=== PATIENT | female | born 1965 | race Caucasian/White ===

== ENCOUNTER → 2019-06-16 08:13 | Day surgery (SDC) | payer BC ==
[~2019-06-16 08:13] MED LIST: Acetaminophen TAB* 325 MG PO PRN; Heparin 2 UNITS/ML IVPREMIX* 2,000 ML IV ONE; Heparin(*) 1000 UNIT/ML 10 ML VIAL CATH LAB IV ONE; Iodixanol 320 (CONTRAST) 100 ML SDV ONE; Lidocaine 1% INJ* 10 MG/ML 30 ML SDV ONE; Midazolam* 1 MG/ML 5 ML VIAL (5 MG) ONE; NS 0.9% 1000 ML** 1,000 ML IV SCH; VERAPAMIL 2.5 MG/ML 2 ML VIAL ** 5 mg/2 ml ONE; fentaNYL* 50 MCG/ML 2 ML VIAL (100 MCG VIAL) ONE; nitroGLYCERIN DRIP* 25,000 MCG/250 ML BTL ONE
[2019-06-16 12:45] VITALS: BP 125/75
--- NOTE | 2019-06-16 12:56 | CATH ---
"*[facility]* [address] [address] Main: [phone] [email or web address] Cardiac Catheterization Patient: Keiry Kerr : 1965 Study Date: 06/16/2019 Age: 53 Gender: F HR: Height: 60 in /152.4 cm BSA: 1.73 m^2 Weight: 150.9 lb /68.6 kg BMI: 29.5 kg/m^2 [employer]acking [employer] Wrapping Supervisor: Cricket Carrillo MD Ordering Physician: Cricket Carrillo MD Referring Physician: Cricket Carrillo MD, Gerardo Johns, --- - Right coronary angiography. - Left coronary angiography. Summary: No critical disease. Normal LVEDP. Recommendations: Contiue maximal medical therapy. Further treatment per Dr. Zuniga. History: Stable angina. Functional status: CCS class II (slight limitation of ordinary activity). Risk factors: Hypertension. Diabetes mellitus; on therapy with oral hypoglycemics. Medications: The patient received antianginal therapy in the last two weeks, including: beta blockers and calcium channel blockers. Labs, prior tests, procedures, and surgery: Blood tests: International normalized ratio (INR) of 1.05. Serum potassium (K) of 4.3 mEq/l. Serum sodium (Na) of 139 mEq/l. Serum creatinine (current admission) of 1.25 mg/dl. Blood urea nitrogen of 28 mg/dl. Glucose of 160 mg/dl. Platelet count of 214 th/ul. White blood cell count (WBC) of 0.01 th/ul. Red blood cell count (RBC) of 4500 th/ul. Hematocrit of 38 %. Hemoglobin (pre-procedure) of 12.8 g/dl. Study data: Study status: Cardiac cath: elective. Location: Catheterization laboratory. Consent: The risks, benefits, and alternatives to the procedure were explained to the patient and/or their healthcare solar manufacturer's representative and written informed consent was obtained. All available pre-procedure labs were reviewed. Height: 152.4 cm. 60 in. Weight: 68.6 kg. 150.9 lb. Body surface area: 1.73 m^2. Body mass index: 29.5 kg/m^2. Procedure: 1. Initial setup. The patient was brought to the laboratory. Surface ECG leads, blood pressure measurements, and pulse oximetric signals were monitored. A baseline seven lead ECG was recorded. A time out was observed per protocol. 2. Skin preparation. The planned puncture sites were prepped and draped in the usual sterile manner. 3. Local anesthesia. 1% lidocaine was administered. 4. Local anesthesia. 1% lidocaine (1 ml) was administered. 5. Supplemental oxygen. Oxygen, 2 L/min was administered throughout the procedure. 6. Right radial artery access. A 6F Glidesheath Slender sheath was advanced into the vessel. 7. Selective right coronary angiography. A 5F TIG 4.0 catheter was advanced into the right coronary vessel ostium under fluoroscopic guidance. Contrast was injected. Images were obtained in multiple projections. 8. Selective left coronary angiography. A 5F AL 1 Diagnostic Impulse catheter was advanced into the left coronary vessel ostium under fluoroscopic guidance. Contrast was injected using 2 injections. Images were obtained in multiple projections. 9. Right radial artery hemostasis. Vessel closure was achieved with a Regular Vasc Band device. Study completion: Minimal estimated blood loss. All catheters inserted during the procedure were removed. There were no apparent complications. Administered medications: VERSED (Midazolam), 2mg, IV. Fentanyl, 25mcg, IV. (Radial) Nitroglycerin, 300mcg, intra-arterially. (Radial) Verapamil, 3mg, intra-arterially. (Radial) Heparin, 3,000units, intra-arterially. NaCl 0.9% , infusion , at a rate of 100 ml/hr. Contrast: Visipaque 65 ml (total dose). Visipaque 35 ml (wasted). Radiation: Fluoroscopy dose: 126.8 cGy. Discharge: The patient tolerated the procedure well and was discharged from the lab in stable condition. Findings Coronary arteries: Left main: Normal, 0% stenosis. LAD: Normal, 0% stenosis. Left circumflex: Normal, 0% stenosis. Right coronary: Proximal vessel lesion: There is a discrete, 40%plaque. Hemodynamics: End diastolic pressure in the left ventricle is normal. + + + |Stage description |Condition 1 - | + + + |LV pressure s/d, ed |115/12, 13, dP/nv=896 mm Hg/s| + + + |Arterial pressure s/d (m)|127/74 (97) | + + + Prepared and electronically signed by Cricket Carrillo MD 06/16/2019 12:56"
== END | disposition home or self-care (01) ==
LOC: CHICATH 08:13
PROVIDERS: ATTEND Specialist
DX: I44.7 Left bundle-branch block, unspecified (principal); R01.1 Cardiac murmur, unspecified; E11.69 Type 2 diabetes mellitus with other specified complication; R94.39 Abnormal result of other cardiovascular function study; R07.9 Chest pain, unspecified; I34.0 Nonrheumatic mitral (valve) insufficiency; I42.9 Cardiomyopathy, unspecified; I10 Essential (primary) hypertension; Z87.891 Personal history of nicotine dependence; Z86.711 Personal history of pulmonary embolism
CPT/HCPCS: 93454; 99156; 99157; J1644; J2250; J3010